=== PATIENT | male | born 1935 | race Caucasian/White ===

== ENCOUNTER 2016-11-18 12:27 | Observation (INO) | payer MEDICARE, OTHER ==
--- NOTE | ~2016-11-18 | HP ---
Unit #: [id number] #: [id number] Patient: AYO GONZALEZ [id number] [address] [place], [place] [address] [id number] I MR#: [id number] NAME: AYO GONZALEZ. ROOM: 317 Age: 81 Sex: M Admission Date: 11/18/2016 : 1935 Attending Physician: Kennedy Calvo M.D. HISTORY AND PHYSICAL CHIEF COMPLAINT Neck pain, chest pain, and diaphoresis. 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 He reports that his primary care provider is a nurse practitioner at the [facility]. He states that he has never had a cardiac stress test, 2D echocardiogram, or cardiac catheterization. The patient endorses that he has a past medical history of hypertension, hyperlipidemia, and abdominal hernia. The patient reports that this morning while he was cleaning his house and making the bed that he became very diaphoretic and had left shoulder pain that radiated to his neck. He reported this pain was a 2-3 out of 10. He states that the pain went away with resting. He states that he has never had a pain like this before. The patient's other complaint is that when he lays down flat at night he does complain of a cough. In the emergency department, patient's initial EKG was unremarkable, and his point of care troponin was less than 0.05. Patient has been admitted for further workup. PAST MEDICAL HISTORY 1. Abdominal hernia. 2. Hypertension. 3. Hyperlipidemia. PAST SURGICAL HISTORY 1. Hernia repair. 2. Appendectomy. ALLERGIES No known allergies. HOME MEDICATIONS Patient does endorse that he does take a blood pressure medication. Patient's is going to get his home medicines, and nursing will call when the medicines are available. He does report that he is compliant with his medications. FAMILY HISTORY Patient states that his brother had rheumatic fever and has had multiple heart surgeries. Unit #: [id number] #: [id number] Patient: AYO GONZALEZ SOCIAL HISTORY Patient states he quit smoking 60 years ago. He has not had any alcohol in 31 years. Patient denies any illicit drug abuse. He states that he is fairly active. REVIEW OF SYSTEMS A 10-point review of systems has been done and is considered otherwise negative unless indicated in the History of Present Illness. PHYSICAL EXAMINATION GENERAL: Patient is awake, alert, and in no acute distress. VITAL SIGNS: Temperature 97.7, heart rate 62, respirations 18, blood pressure 108/55, and he is oxygenating 96% on room air. HEENT: Head is atraumatic and normocephalic. Pupils are equal, round, and reactive. Extraocular movements are intact. No drainage from ears or nares. NECK: Supple. Trachea is midline. No lymphadenopathy or thyromegaly is appreciated. No JVD. Normal carotid upstrokes. CHEST: Lungs are clear to auscultation bilaterally. No wheezes, rales, or rhonchi. CARDIOVASCULAR: S1 and S2, regular rate and rhythm. No murmurs, rubs, or gallops are appreciated. ABDOMEN: Soft, nontender, and nondistended. Bowel sounds are positive in all four quadrants. SKIN: Appears to be warm, dry, and intact. EXTREMITIES: No clubbing, edema, or cyanosis. NEUROLOGIC: Patient is alert and oriented x3. He is pleasant and conversant. Cranial nerves II-XII intact. No focal deficits. DIAGNOSTIC STUDIES LABORATORY: White blood cells 11.9, hemoglobin 13.2, hematocrit 40.3, and platelets 220,000. Sodium 135, potassium 4.3, chloride 100, CO2 of 27, BUN 28, creatinine 1.4, and glucose 76. Reportedly, point of care troponin is negative. ASSESSMENT 1. Neck pain with diaphoresis and mild chest pain. 2. Hypertension. 3. Hyperlipidemia. 4. Abdominal hernia surgery. 5. Cough. 6. Nonsmoker. PLAN At this time, will trend cardiac enzymes and check labs in the morning. Will check a 2D echocardiogram and perform an exercise Cardiolite stress test in the morning. Will start the patient on aspirin 81 mg p.o. daily, nitroglycerin paste a half an inch b.i.d., and Zofran 4 mg IV q.6 hours p.r.n. for nausea. I have asked nursing to call with the home medications and again, patient will have an exercise Cardiolite stress test in the morning. If patient is unable to tolerate the exercise Cardiolite stress test, it will be changed to a Lexiscan. Patient is agreeable. Patient will have a healthy heart diet and will be n.p.o. after midnight. Dictated by aPdma Mancilla A.P.R.N. for Kennedy Calvo M.D. AM/am Unit #: [id number] #: [id number] Patient: AYO GONZALEZ TD: 11/18/2016 21:56 JOB #: [id number] HISTORY AND PHYSICAL Page 1 of 1 X Padma Mancilla APRN X HISTORY AND PHYSICAL
--- NOTE | ~2016-11-18 | EKG ---
PATIENT: AYO GONZALEZ UNIT #: [id number] Ventricular Rate: 56 BPM Atrial Rate: 56 BPM P-R Interval: 228 ms QRS Duration: 94 ms Q-T Interval: 398 ms QTC Calculation(Bezet): 384 ms P [place]: 3 degrees Calculated R [place]: -25 degrees Calculated T [place]: 29 degrees Diagnosis Line: Sinus bradycardia with 1st degree A-V block Diagnosis Line: Nonspecific ST abnormality Diagnosis Line: Abnormal ECG Diagnosis Line: When compared with ECG of 18-NOV-2016 12:55, Diagnosis Line: (unconfirmed) Diagnosis Line: DC interval has increased Diagnosis Line: Criteria for Inferior infarct are no longer Diagnosis Line: Present Diagnosis Line: Confirmed by MARIE BERRY MD ([id number]) on 11/20/2016 Diagnosis Line: 9:58:22 AM INTERPRETING MD: JAMAL ALMARAZ
--- NOTE | ~2016-11-18 | ST ---
Unit #: [id number] #: [id number] Patient: AYO GONZALEZ [id number] [address] [address] [id number] I MR#: [id number] NAME: AYO GONZALEZ. : 1935 SEX: M STUDY DATE/TIME: 11/19/2016 UNIT: C3A PCU ROOM: [facility] STUDY DESCRIPTION: Cardiac stress test. Attending Physician: Kennedy Calvo M.D. Primary Care Physician: No Primary Care Physician CARDIOLOGY REPORT EXAM Cardiac stress test. PROCEDURE Baseline heart rate 60 beats per minute, blood pressure 134/71. EKG normal sinus rhythm. Normal EKG. The patient exercised on standard Kam protocol for 6 minutes 34 seconds. Peak heart rate 122 beats per minute, which was 89% of the predicted heart rate. Peak blood pressure 180/78. During exercise recovery no further ST-T changes. The patient received 11.23 mCi of Cardiolite at rest and 35.5 mCi of Cardiolite during stress. Both sets of images were compared. The patient showed fairly uniform uptake of radiotracer. No defect was noted. The patient also had gated SPECT scan done, which showed normal left ventricular size and function. No wall motion abnormality detected. Ejection fraction 51%. INTERPRETATION 1. Average exercise tolerance. 2. Appropriate hemodynamic response. 3. EKG part of the test negative for stress induced ischemia. 4. Nuclear part of the test negative for myocardial ischemia. 5. Gated SPECT scan shows normal left ventricular size and function. 1. Dictated by... Trina Montalvo TD: 11/19/2016 12:03 JOB #: [id number] CC: Bora Lui M.D. CARDIOLOGY REPORT Page 1 of 1 X Bora Lui MD CARDIOLOGY REPORT
--- NOTE | ~2016-11-18 | EKG ---
PATIENT: AYO GONZALEZ UNIT #: [id number] Ventricular Rate: 70 BPM Atrial Rate: 70 BPM P-R Interval: 186 ms QRS Duration: 106 ms Q-T Interval: 394 ms QTC Calculation(Bezet): 425 ms P Ridge: 17 degrees Calculated R Ridge: -35 degrees Calculated T Ridge: 19 degrees Diagnosis Line: Normal sinus rhythm with sinus arrhythmia Diagnosis Line: Left axis deviation Diagnosis Line: Inferior infarct , age undetermined Diagnosis Line: Abnormal ECG Diagnosis Line: When compared with ECG of 19-JUN-2014 11:03, Diagnosis Line: Premature atrial complexes are no longer Present Diagnosis Line: T wave inversion no longer evident in Inferior Diagnosis Line: leads Diagnosis Line: Confirmed by MARIE BERRY MD ([id number]) on 11/20/2016 Diagnosis Line: 9:46:14 AM INTERPRETING MD: JAMAL ALMARAZ
--- NOTE | ~2016-11-18 | TH ---
Unit #: [id number] #: [id number] Patient: AYO GONZALEZ [id number] [address] [address] [id number] I MR#: [id number] NAME: AYO GONZALEZ : 1935 SEX: M STUDY DATE/TIME: 11/19/2016 UNIT: C3A PCU ROOM: [facility] STUDY DESCRIPTION: Cardilite imaging Attending Physician: Kennedy Calvo M.D. Primary Care Physician: Brittani Primary Care Physician CARDIOLOGY REPORT EXAM Results included in cardiac stress report. Dictated by... Bora Lui M.D. NKS/gz TD: 11/19/2016 12:12 JOB #: [id number] CARDIOLOGY REPORT Page 1 of 1 X Bora Lui MD CARDIOLOGY REPORT
--- NOTE | ~2016-11-18 | DS ---
Unit #: [id number] #: [id number] Patient: AYO GONZALEZ [id number] [address] [place], [place] [address] [id number] I MR#: [id number] NAME: AYO GONZALEZ. ROOM: [facility] Age: Sex: M Admission Date: 11/18/2016 : 1935 Discharge Date: 11/19/2016 Attending Physician: Kennedy Calvo M.D. Primary Care Physician: No Primary Care Physician DISCHARGE SUMMARY DISCHARGE DIAGNOSES 1. Atypical chest pain with normal exercise Cardiolite stress test. 2. Hypertension. 3. Hyperlipidemia. 4. Nonsmoker. PROCEDURE The patient underwent an exercise Cardiolite stress test which was normal and showed no ischemia. MOST RECENT LABORATORY RESULTS Troponin is less than 0.03 x2, TSH 2.13, cholesterol 166, triglyceride 126, LDL 105, HDL 36, sodium 133, potassium 4.7, chloride 99, CO2 27, BUN 30, creatinine 0.9, glucose 105. 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 His primary care provider is the nurse practitioner at the [facility]. He states that he has never had a cardiac stress test, 2D echocardiogram or cardiac catheterization and, as before, his only past medical history is hypertension and hyperlipidemia. The patient reports that the morning of admission that he was cleaning his house and while making the bed he became very diaphoretic and had left shoulder pain that radiated to his neck. He reported that the pain was a 2 to 3 out of 10. He states the pain went away with resting. He states he has never had pain like that before. In the emergency department, the patient's initial EKG was unremarkable and patient's point of care troponin was less than 0.05. The patient's troponin were trended and they were less than 0.03 x2. Ultimately, patient underwent an exercise Cardiolite stress test which was found to be normal with no ischemia. A 2D echocardiogram was also completed. I discussed this case with Dr. Lui. He is agreeable patient is stable for discharge. DISCHARGE FOLLOWUP INSTRUCTIONS 1. Patient will be discharged home. 2. Activity as tolerated. 3. Follow up [place] [facility] [place]. 4. Healthy heart diet. 5. Follow up with primary care provider in one week. Unit #: [id number] #: [id number] Patient: AYO GONZALEZ DISCHARGE MEDICATIONS 1. Flomax 0.4 mg p.o. daily. 2. Lisinopril/hydrochlorothiazide 10/12.5 mg p.o. daily. 3. Magnesium oxide 400 mg p.o. daily. 4. Zyrtec 10 mg p.o. daily. 5. Norvasc 5 mg p.o. daily. 6. Multivitamin two tabs p.o. daily. 7. Aspirin 81 mg p.o. daily. 8. Potassium gluconate 595 mg p.o. daily. Dictated by... Padma Mancilla A.P.R.N. for Bora Lui M.D. AM/rc TD: 11/19/2016 12:15 JOB #: [id number] DISCHARGE SUMMARY Page 1 of 1 X Padma Mancilla APRN X DISCHARGE SUMMARY
[~2016-11-18 12:27] MED LIST: KEFLEX250 M1 PO; LORTAB 5/500 TA1 TA1 PO
[2016-11-18 13:00] LABS: BASOPHIL# 0.1 X10e3 (0-0.3); BASOPHIL% 0.5 % (0-2.5); DIFF IND NO; EOSINOPHIL# 0.1 X10e3 (0-0.7); EOSINOPHIL% 0.6 % (0.0-7.0); HEMATOCRIT 40.3 % (38.0-50.0); HEMOGLOBIN 13.2 gm/dL (13.0-16.0); LYMPHOCYTE# 0.7 X10e3 (1.0-3.5); LYMPHOCYTE% 6.2 % (17.0-45.0); MEAN CELL VOLUME 90.1 FL (83-96); MEAN CORPUSCULAR HEMOGLOBIN 29.4 PG (28-34); MEAN CORPUSCULAR HGB CONC 32.7 g/dL (30-36); MEAN PLATELET VOLUME 8.3 FL (6.5-11.5); MONOCYTE# 0.8 X10e3 (0-1.0); NEUTROPHIL# 10.3 X10e3 (1.5-7.1); NEUTROPHIL% 85.7 % (40-75); PLATELET COUNT 220 X10e3 (140-420); RED BLOOD COUNT 4.47 X10e (3.90-5.60); RED CELL DISTRIBUTION WIDTH 13.2 % (11.0-15.5); WHITE BLOOD COUNT 11.9 X10e3 (4.0-10.5)
[2016-11-18 13:15] LABS: POC - CKMB 1.8 ng/mL (0.0-7.9); POC - TROPONIN <0.05 ng/mL (<=0.05)
[2016-11-18 13:25] LABS: ALBUMIN SERUM 4.4 g/dL (3.5-5.0); BILIRUBIN, DIRECT 0.1 mg/dL (0.0-0.2); BILIRUBIN,INDIRECT 0.5 mg/dL (0.0-0.9); BILIRUBIN,TOTAL 0.6 mg/dL (0.2-2.0); CALCIUM SERUM 9.3 mg/dL (8.4-10.2); CREATININE SERUM 1.4 mg/dL (0.6-1.4); GLOM FILT RATE Estimated 46.2 mL/min (>60); POTASSIUM 4.3 mmol/L (3.5-5.1); PROTEIN TOTAL SERUM 7.5 g/dL (6.0-8.3)
[2016-11-18 14:59] LABS: POC - CKMB 1.7 ng/mL (0.0-7.9); POC - TROPONIN <0.05 ng/mL (<=0.05)
[2016-11-18 16:04] LABS: CHOLESTEROL 166 mg/dL (0-200); HDL CHOLESTEROL 36 mg/dL (29-75); LDL CHOLESTEROL 105 mg/dL (-130); LDL/HDL RATIO 3 RATIO (0-4); TRIGLYCERIDES 126 mg/dL (10-160)
[2016-11-18] MEDS ORDERED: ZESTORETIC 10-1 EAC1 PO (16:04)
[2016-11-18] MEDS ORDERED: AMLODIPINE BESYL5 MG PO (16:04)
[2016-11-18] MEDS ORDERED: FLOMAX0.4 M1 PO (16:04)
[2016-11-18] MEDS ORDERED: PRESERVISION1 EA PO (16:05)
[2016-11-18] MEDS ORDERED: MAGNESIUM400 MG PO (16:05)
[2016-11-18] MEDS ORDERED: WAL-ZYR10 MG PO (16:07)
[2016-11-18] MEDS ORDERED: POTASSIUM GLUC500 MG PO (16:07)
[2016-11-18 23:12] LABS: CK TOTAL 54 IU/L (36-174)
[2016-11-19 02:46] LABS: CK TOTAL 54 IU/L (36-174)
[2016-11-19 03:20] LABS: BUN/CREATININE RATIO 33.33; CALCIUM SERUM 9.2 mg/dL (8.4-10.2); CREATININE SERUM 0.9 mg/dL (0.6-1.4); GLOM FILT RATE Estimated 78.7 mL/min (>60); MAGNESIUM 2.1 mg/dL (1.6-3.0); POTASSIUM 4.7 mmol/L (3.5-5.1)
== END 2016-11-19 13:06 | disposition home or self-care (01) ==
LOC: CED 12:27 → CEDOF 14:55 → CED 15:33 → C3A PCU 19:38 → CEDOF 19:38 → C3A PCU 11-19 13:06
PROVIDERS: Emergency Medicine; Internal Medicine Interventional Cardiology
DX: R07.89 Other chest pain (principal); E78.5 Hyperlipidemia, unspecified; I08.3 Combined rheumatic disorders of mitral, aortic and tricuspid valves; I51.7 Cardiomegaly; I50.30 Unspecified diastolic (congestive) heart failure; K46.9 Unspecified abdominal hernia without obstruction or gangrene; M54.2 Cervicalgia; Z87.891 Personal history of nicotine dependence; Z23 Encounter for immunization; Z98.890 Other specified postprocedural states
CPT/HCPCS: 36415; 78452; 80048; 80061; 80076; 82550; 82553; 83036; 83735; 84443; 84484; 85025; 90732; 93005; 93017; 93306; 96372; 99284; A9500; G0009; G0378; J1650